=== PATIENT | female | born 1960 | race Two or more races ===

== ENCOUNTER 2020-12-25 05:57 | Day surgery (SDC) | payer OTHER | END 2020-12-25 10:50 | disposition home or self-care (01) | LOC: AMB-ENDOS 05:57 | PROVIDERS: ATTEND Surgery | DX: C20 Malignant neoplasm of rectum (principal); K64.8 Other hemorrhoids ==

== ENCOUNTER 2021-03-05 10:45 | Inpatient (IN) | payer OTHER ==
[~2021-03-05] VITALS: Ht 162.6 cm; Wt 85.3 kg
[2021-03-05] MEDS ORDERED: ATORVASTATIN CA10 MG PO (11:45)
[2021-03-05] MEDS ORDERED: COZAAR100 MG PO (11:45)
[2021-03-05] MEDS ORDERED: ALLOPURINOL300 MG PO (11:45)
[2021-03-05] MEDS ORDERED: TOPROL XL50 M1 PO (11:46)
[2021-03-05] MEDS ORDERED: AMLODIPINE PO (11:46)
[2021-03-05] MEDS ORDERED: GLUMETZA500 MG PO (11:47)
[2021-03-05] MEDS ORDERED: GLIMEPIRIDE2 M1 PO (11:47)
[2021-03-10] MEDS ORDERED: NORVASC2.5 M1 (08:41)
== END 2021-03-10 17:33 | disposition home or self-care (01) | DRG 330 ==
LOC: O/R 03-07 05:35 → SURH 03-07 10:45
PROVIDERS: ADMIT Surgery; ATTEND Surgery
PROC: 0DBP4ZZ Excision of Rectum, Percutaneous Endoscopic Approach (ICD-10-PCS; 2021-03-07)
PROC: 07BC4ZZ Excision of Pelvis Lymphatic, Percutaneous Endoscopic Approach (ICD-10-PCS; 2021-03-07)
PROC: 0DJD8ZZ Inspection of Lower Intestinal Tract, Via Natural or Artificial Opening Endoscopic (ICD-10-PCS; 2021-03-07)
PROC: 0DTN4ZZ Resection of Sigmoid Colon, Percutaneous Endoscopic Approach (ICD-10-PCS; principal; 2021-03-07 16:00)
DX: C20 Malignant neoplasm of rectum (principal); C77.5 Secondary and unspecified malignant neoplasm of intrapelvic lymph nodes; K62.5 Hemorrhage of anus and rectum; R59.9 Enlarged lymph nodes, unspecified; N73.6 Female pelvic peritoneal adhesions (postinfective)